=== PATIENT | female | born 1945 | race Caucasian/White ===

== ENCOUNTER 2016-05-26 15:06 | Inpatient (IN) | payer OTHER ==
[~2016-05-26] VITALS: Ht 165.1 cm; Wt 70.1 kg
--- NOTE | ~2016-05-26 | H ---
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 She was transferred from the acute hospital to the acute rehab rivas at . From there, she was transferred to [facility] for retirement facility care. While at [facility], she had the onset mental status changes. She was noted to have Clostridium difficile. She was placed on Flagyl. She had increased lethargy, worsening renal insufficiency and elevated creatinine. She was admitted to [facility], diagnosed with severe sepsis secondary to urinary tract infection, hyponatremia, toxic encephalopathy, acute renal insufficiency and thought to have possible pyelonephritis. She initially had a rectal tube in place, was followed closely by Infectious Disease. She was placed on p.o. Flagyl. Toxic encephalopathy was noted to improve with patient more alert, oriented to person and time. She was working in her therapies on trying to improve her overall function. She was felt to be ready for admission for acute in-hospital inpatient rehabilitation. PAST MEDICAL HISTORY: Includes prior CVA. This is noted to be left-sided causing right-sided weakness and dysarthria. She was also noted to have a prior history of hypertension, dyslipidemia, gout, hypothyroidism and GERD. MEDICATIONS: Please see the full medication listing. Her medications were each individually reconciled, as part of the admission to the acute inpatient rehabilitation rivas. FAMILY HISTORY: Unable to be obtained secondary to the patient's mental status. SOCIAL HISTORY: Premorbidly had been living alone, and was independent with ADLs. She does have a closely involved son. REVIEW OF SYSTEMS: Unable to obtain this morning with her mental status. PHYSICAL EXAMINATION: GENERAL: A 71-year-old white female, who had some hesitation earlier and has had some difficulty with voiding. She has needed to be straight cath. Nursing has been encouraging her to take her medications. VITAL SIGNS: Temperature 36.5, pulse 80, respirations 20, blood pressure 151/79. [facility] [address] [place] [address] HISTORY AND PHYSICAL Name: TONI MCRAE Room #: 503-P [facility]#: [id number] Admission: 05/26/16 Attend Phys: Ilia Kessler MD Discharge: Date of : 41 Report #: [id number] HEENT: Appeared to be benign. Has some dysarthria with her speech. EOMs otherwise appeared to be full. We will follow basic 1 step commands. CHEST: Some decreased diffuse breath sounds. CARDIOVASCULAR: Sounded regular rate and rhythm. ABDOMEN: Bowel sounds positive and nontender. GENITOURINARY/RECTAL: Deferred. EXTREMITIES: She has functional range of motion of the upper extremities with decreased strength of the right upper extremity, probably a grade 3+ to 4-/5 with some right-sided neglect. Right lower extremity is a grade 4- to 3+/5. Left upper and left lower extremity were more of a grade 4. I was unable to assess sensation. She has been mod assist with some basic functional bed mobility. As far as her diet, she is on pureed with nectar thickened liquids. ASSESSMENT: 1. Toxic encephalopathy. 2. Recent cerebrovascular accident with right hemiparesis. 3. Dysphagia. 4. Mental status changes with intermittent agitation. 5. Severe sepsis secondary to urinary tract infection. 6. Hyponatremia that has resolved. 7. Severe Clostridium difficile colitis. 8. Possible pyelonephritis. 9. Recent dehydration. PLAN: The patient is admitted for acute in-hospital inpatient rehabilitation. From a postadmission physician evaluation perspective, there are no relevant changes since the preadmission screening. She is having some agitation this morning and nursing is encouraging her as far as taking her medications, etc. Her family has been contacted as well. Please see the above review of prior and current medical and functional conditions and comorbidities. Please see the patient's previous and current functional status. As far as risk of complications, the patient has multiple medical comorbidities as noted above. Initial plan of care involves the interdisciplinary acute inpatient rehabilitation program with the goal of maximizing the patient's functional independence, so she can hopefully return ideally to the home setting with her son involved. Measurable functional goals would be for her to improve as far as basic bed mobility and transfers as well as communication, cognition and swallowing. Ideally, the goal would be to achieve independence at least at the wheelchair level. Prognosis is reasonably good with estimated length of stay probably fairly long with her lower functional level currently. Potential barriers would include her mental status. Her significant functional deficits and her multiple medical comorbidities. The patient does meet medical necessity requirements for an acute in-hospital [facility] [address] [place] [address] HISTORY AND PHYSICAL Name: TONI MCRAE Room #: 503-P [facility] IN M.R.#: [id number] Admission: 05/26/16 Attend Phys: Ilia Kessler MD Discharge: Date of : 41 Report #: [id number] inpatient rehabilitation stay. She meets diagnostic criteria. She will need to be assessed further regarding tolerance. She was felt to have the tolerance prior to coming over to the rehab rivas, but will need to see how she does with participating in therapies. She does have appropriate discharge goals back to the home setting. <ELECTRONICALLY SIGNED> By: Ilia Kessler MD 05/27/16 1223 1102 1140 Ilia Kessler MD /nt
--- NOTE | ~2016-05-26 | HC ---
[facility] [place] [address] CONSULTATION Name: TONI MCRAE Room #: 503-P ADM IN M.R.#: [id number] Admission: 05/26/16 Attend Phys: Ilia Kessler MD Discharge: Date of : 41 Report #: [id number] THIS REPORT FOR: //name// CC: Ilia Garcia DATE OF SERVICE: 05/29/2016 NEUROBEHAVIORAL STATUS EXAM ATTENDING PHYSICIAN: Ilia Kessler M.D EXTRUSION BENDER: Luis Angel Pérez, PhD CLINICAL PRESENTATION: The patient is a 71-year-old female admitted to the [facility] rehabilitation unit for a comprehensive inpatient rehabilitation program to improve functional mobility, activities of daily living and self-care and mental status secondary to a toxic encephalopathy. She was not oriented as to the reason for her hospitalization during the interview. The patient indicates amnestic episode prior to her admission. Inconsistent memory is noted at this time. She reported to have been living independently in her own home. Her diagnoses on admission include recent CVA with right hemiparesis, dysphagia, mental status changes with intermittent agitation, severe sepsis secondary to UTI, hyponatremia, C. diff, possible pyelonephritis and recent dehydration. A complete description of her medical condition and history can be found in her medical record. Neuropsychological consultation was requested to provide assistance in the assessment of cognitive and emotional status and to provide recommendations and services. Prior to this most recent admission, she reports living independently in her own home. The patient is not a consistently reliable historian. She appeared somewhat suspicious during the interview. 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 She states having 3 children. The patient indicates that she is , but does not see her children often. She reports being independent with instrumental activities of daily living. However, she does have an amnestic episode surrounding her hospitalization. Medical records indicate having a supportive son. She also has been involved in rehabilitation settings and not living independently for a period of time. She was in a skilled rehabilitation program at the [facility] since early April. The patient had a CVA in March and was treated at the [facility]. Following acute rehab at she went to [facility]. Her son was dissatisfied with her treatment at the [facility]. A complete description of her medical condition, history and medications can be found in her medical record. Neuropsychological [address] [address] CONSULTATION Name: TONI MCRAE Room #: 503-P [facility] IN [facility].#: [id number] Admission: 05/26/16 Attend Phys: Ilia Kessler MD Discharge: Date of : 41 Report #: [id number] consultation was requested to provide assistance in the assessment of cognitive and emotional status and to provide recommendations and services. Prior to this most recent medical event and her stroke, she was living independently in her own home. The patient has 3 children. She is . TECHNIQUES UTILIZED: Clinical interview, review of medical records, staff consultation and behavioral observation, mini mental status exam 2 standard version, calibrated ideational fluency assessment (letter and category) and brief abstract reasoning test. EXAMINATION FINDINGS: The patient was alert and partially cooperative with the assessment. She tended to give up easily on items. Her mood was somewhat defensive, slightly suspicious and irritable as the evaluation progressed. She has decreased insight into the reason for her hospitalization. The patient does not know the reason why she is in the hospital and is amnestic for recent events that preceded her admission. She appears anxious although, she does not report subjective depression or anxiety. The patient does acknowledge difficulty with memory and word finding. She also indicates that her appetite and sleep are poor. Her performance on the MMSE 2 brief version was extremely low with a raw score at 9/16. She was 3/3 for initial registration, 3/5 for orientation to time and 3/[address]. She was 0/3 for immediate recall of 3 items after a brief time delay and distraction. Performance on the MMSE 2 standard version is extremely low with a raw score of 16/30. She was 0/5 for serial 7's. Naming and repetition are within normal limits. Auditory comprehension appeared satisfactory. She could read and follow a single command. Deficits are noted in her ability to sustain concentration. Suggested are deficits in executive functioning. Verbal fluency assessment was extremely low. Letter fluency was a raw score of 4. Category fluency was a raw score of 7. Abstract reasoning test was extremely low with a raw score of 1/6. Impairment in thought organization, conceptual reasoning and generative speech are suggested. DIAGNOSTIC IMPRESSION: 1. Delirium, hypoactive, acute -- chronic. 2. Major neurocognitive disorder (dementia) -- unspecified without behavior disorder, extent to be determined. 3. Anxiety disorder, unspecified with depressed mood. RECOMMENDATIONS: The patient will require 24-hour care upon discharge. She will need assistance with medical, financial and nutritional management. She lacks insight into the severity of her deficits. She will need assistance with [facility] [address] [place] [address] CONSULTATION Name: TONI MCRAE Room #: 503-P [facility] IN [facility]#: [id number] Admission: 05/26/16 Attend Phys: Ilia Kessler MD Discharge: Date of : 41 Report #: [id number] the management of her medication. Continued use of an antidepressant is also indicated. Medication with sedating features should be minimized as much as medically appropriate, example, temazepam. Thank you very much for allowing me to provide the consultation on this patient. <ELECTRONICALLY SIGNED> By: Luis Angel Pérez, PhD 05/31/16 1156 1522 1212 Luis Angel Pérez, PhD /nt
--- NOTE | ~2016-05-26 | PLAN ---
[facility] [place] [address] REHAB UNIT PLAN OF CARE Name: TONI MCRAE Room #: 503-P ADM IN M.R.#: [id number] Admission: 05/26/16 Attend Phys: Ilia Kessler MD Discharge: Date of : 41 Report #: [id number] THIS REPORT FOR: //name// CC: Ilia Garcia The patient is seen back in followup. She is in no distress. Last recorded temperature 98.5, pulse 85, respirations 20, and blood pressure 150/89. She is pleasant. No focal calf swelling. She is following basic 1 step commands. Transfers are mod assist. She is ambulating 10 feet with a front-wheeled walker with mod assist. In occupational therapy, lower body dressing is dependent. She does have moderate comprehensive deficits, [id number] expressive deficits and she is on a mechanical soft with nectar thickened liquid diet. ASSESSMENT: 1. Toxic encephalopathy. 2. Recent cerebrovascular accident with right hemiparesis. 3. Dysphagia. 4. Mental status changes with intermittent agitation. 5. Severe sepsis secondary to urinary tract infection. 6. Hyponatremia that has resolved. 7. Severe Clostridium difficile colitis. 8. Possible pyelonephritis. 9. Recent dehydration. PLAN: The overall plan of care is based on the preadmission screen, post-admission physician evaluation and information garnered from therapy assessments. 1. Estimated length of stay is probably at least 2-3 weeks and likely longer as she is at a lower level of function. 2. Medical prognosis is reasonably good. 3. Anticipated interventions include the interdisciplinary acute inpatient rehabilitation program. 4. Anticipated functional outcomes would be for the patient to become modified independent with transfers, mobility and ADLs, so that she can get back to the home setting. She will likely need some additional assistance at home with the son there to help. 5. Discharge destination is as noted above. To get back to the home setting with the son more involved. 6. Expected therapy by discipline includes PT, OT and speech 1 hour per day each five days a week throughout the duration of the acute inpatient rehabilitation stay. <ELECTRONICALLY SIGNED> By: Ilia Kessler MD 05/31/16 1205 [id number] 1349 Ilia Kessler MD /nt
[~2016-05-26 15:06] MED LIST: ALLOPURINOL 10100 M1 PO; ASPIR 8181 MG PO; ATORVASTATIN CA40 MG PO; CALCIUM 500 +1 EAC5 PO; CIPRO250 M1 PO; CO Q-10100 MG PO; ENOXAPARIN40 MG/0.1 SUBQ; FEMARA2.5 MG PO; FLAGYL500 MG PO; FLORANEX PACKET1 GM PO; KEFLEX500 MG PO; LACTINEX CHEWA1 EACH PO; LEVAQUIN 250 M250 MG PO; LEVOTHYROXIN0.025 MG PO; LISINOPRIL10 MG PO; MAGOX 400400 MG PO; MELATONIN3 MG PO; MIRALAX17 GM PO; OMEGA-31000 M1 PO; PERCOCET 5-3251 EACH PO; POTASSIUM20 PO; PROTONIX40 M1 PO; RESTORIL15 MG PO; TENORMIN25 MG PO; TUBERSOL1 ML/1 VIA ID; VANCOMYCIN100 MG/M1 PER TUBE; ZOLOFT50 MG PO
[2016-05-27 05:43] LABS: HEMATOCRIT 31.9 % (37.0-47.0); HEMOGLOBIN 10.4 gm/dL (12.0-15.0); MCH 27.1 pg (26.0-34.0); MCHC 32.5 g/dL (28.0-37.0); MCV 83.4 fL (80.0-100.0); RBC 3.83 mil/uL (4.20-5.00); RDW 15.7 % (10.5-14.5)
[2016-05-27 05:53] LABS: CALCIUM 8.1 mg/dL (8.5-10.1); CREATININE 0.8 mg/dL (0.6-1.3); POTASSIUM 3.1 mmol/L (3.5-5.1)
[2016-06-04 18:12] LABS: ABSOLUTE NEUTROPHILS 4.2 thou/uL (1.4-8.2); BASOPHILS 0.6 % (0.0-2.0); EOSINOPHILS 3.4 % (0.0-3.0); HEMATOCRIT 34.3 % (37.0-47.0); HEMOGLOBIN 11.3 gm/dL (12.0-15.0); LYMPHOCYTES 25.4 % (24.0-44.0); MCH 27.6 pg (26.0-34.0); MCV 83.6 fL (80.0-100.0); PLATELET COUNT 163 thou/uL (150-400); POLYS 59.6 % (36.0-66.0); RDW 16.4 % (10.5-14.5); WBC 7.1 thou/uL (4.0-11.0)
[2016-06-04 18:13] LABS: MANUAL DIFF NO
[2016-06-04 18:26] LABS: ALBUMIN 2.6 g/dL (3.4-5.0); CALCIUM 7.6 mg/dL (8.5-10.1); CREATININE 0.9 mg/dL (0.6-1.3); POTASSIUM 4.2 mmol/L (3.5-5.1); TOTAL BILIRUBIN 0.2 mg/dL (<0.1-1.0); TOTAL PROTEIN 6.4 g/dL (6.4-8.2)
[2016-06-08 03:06] LABS: GLYCOHEMOGLOBIN (HGB A1C) 6.4 % (4.8-5.6)
[2016-06-09] MEDS ORDERED: ENOXAPARIN40 MG/0.1 SUBQ (11:51)
[2016-06-09] MEDS ORDERED: BENTYL 20 MG TA20 M1 PO (11:51)
[2016-06-09] MEDS ORDERED: FLOMAX0.4 MG PO (11:51)
[2016-06-10] MEDS ORDERED: LOPERAMIDE 2 MG2 M1 PO (13:29)
== END 2016-06-10 15:07 | DRG 91 ==
PROVIDERS: Internal Medicine Geriatric Medicine; Nurse Practitioner Family; Physical Medicine & Rehabilitation
DX: G92 Toxic encephalopathy (principal); R65.20 Severe sepsis without septic shock; A41.9 Sepsis, unspecified organism; E87.1 Hypo-osmolality and hyponatremia; A04.7 Enterocolitis due to Clostridium difficile; N39.0 Urinary tract infection, site not specified; N17.9 Acute kidney failure, unspecified; E87.0 Hyperosmolality and hypernatremia; I69.951 Hemiplegia and hemiparesis following unspecified cerebrovascular disease affecting right dominant side; R41.0 Disorientation, unspecified; F01.50 Vascular dementia, unspecified severity, without behavioral disturbance, psychotic disturbance, mood disturbance, and anxiety; F41.9 Anxiety disorder, unspecified; R13.10 Dysphagia, unspecified; I10 Essential (primary) hypertension; E78.5 Hyperlipidemia, unspecified; E03.9 Hypothyroidism, unspecified; M10.9 Gout, unspecified; K21.9 Gastro-esophageal reflux disease without esophagitis; Z60.2 Problems related to living alone; E86.0 Dehydration; R19.7 Diarrhea, unspecified; R45.1 Restlessness and agitation; E87.6 Hypokalemia; E11.65 Type 2 diabetes mellitus with hyperglycemia; Z85.3 Personal history of malignant neoplasm of breast; Z88.1 Allergy status to other antibiotic agents; Z88.8 Allergy status to other drugs, medicaments and biological substances; Z79.899 Other long term (current) drug therapy; Z79.82 Long term (current) use of aspirin
CPT/HCPCS: 10112